=== PATIENT | male | born 1970 | race American Indian/Alaskan Native ===

== ENCOUNTER 2018-05-12 20:27 | Emergency (ER) | payer SELFPAY ==
[2018-05-12 20:50] VITALS: BP 119/75; PULSE 94; RESP 20; TEMP 99.2; O2SAT 96
--- NOTE | 2018-05-12 21:53 | C.PDOC ---
History Of Present Illness 47 year old male presents to the ED c/o cough, chest congestion , subjective fever for the past 2 days. Patient reports he is a heavy smoker, reports having some post tussive chest pain. Patient denies nausea, vomit, SOB, palpitations, nausea, vomit, dizziness, weakness. Time Seen by Provider: 05/12/18 21:00 Chief Complaint (Nursing): Cough, Cold, Congestion History Per: Patient History/Exam Limitations: no limitations Onset/Duration Of Symptoms: Days (2) Current Symptoms Are (Timing): Still Present Location Of Pain: Other Associated Symptoms: Fever, Cough Ear Symptoms: Bilateral: None Recent travel outside of the [place]: No Additional History Per: Patient Past Medical History Reviewed: Historical Data, Nursing Documentation, Vital Signs Vital Signs: Last Vital Signs Temp 99.2 F 05/12/18 20:47 Pulse 94 H 05/12/18 20:47 Resp 20 05/12/18 20:47 BP 119/75 05/12/18 20:47 Pulse Ox 96 05/12/18 20:47 - Medical History PMH: No Chronic Diseases Surgical History: No Surg Hx Family History: States: Unknown Family Hx - Social History Hx Alcohol Use: Yes Hx Substance Use: Yes - Immunization History Hx Tetanus Toxoid Vaccination: No Hx Influenza Vaccination: No Hx Pneumococcal Vaccination: No Review Of Systems Constitutional: Positive for: Fever. Negative for: Chills ENT: Positive for: Nose Discharge, Nose Congestion. Negative for: Throat Pain Cardiovascular: Positive for: Chest Pain. Negative for: Palpitations Respiratory: Positive for: Cough. Negative for: Shortness of Breath Gastrointestinal: Negative for: Nausea, Vomiting Skin: Negative for: Rash Neurological: Negative for: Weakness, Numbness, Headache Physical Exam - Physical Exam Appears: Non-toxic, No Acute Distress Skin: Normal Color, Warm, Dry Head: Atraumatic, Normacephalic Eye(s): bilateral: Normal Inspection Ear(s): Bilateral: Normal Oral Mucosa: Moist Throat: Normal, No Erythema, No Exudate Neck: Normal ROM, Supple Chest: Symmetrical Cardiovascular: Rhythm Regular Respiratory: Normal Breath Sounds (congestion), No Rales, No Rhonchi, No Wheezing Extremity: Normal ROM, No Tenderness, No Swelling Neurological/Psych: Oriented x3, Normal Speech, Normal Cognition Gait: Steady ED Course And Treatment O2 Sat by Pulse Oximetry: 96 (ON RA) Pulse Ox Interpretation: Normal - Radiology CXR: Interpreted by Me, Viewed By Me CXR Interpretation: Yes: Other (increased lung markings). No: Infiltrates Progress Note: Plan: - CXR. On reassessment, patient is resting comfortably with no wheezing, chest pain, or retractions. . Patient was advised to follow up with physician/clinic in 1-2 days and return to ED if symptoms worsen or persist. Reassessment Condition: Improved Disposition Counseled Patient/Family Regarding: Diagnosis, Need For Followup, Rx Given - Disposition Disposition: HOME/ ROUTINE Disposition Time: 21:51 Condition: STABLE Additional Instructions: Please follow up with PMD or clinic Increase fluids Return to ER if worse Prescriptions: Azithromycin [Zithromax] 250 mg PO DAILY #6 tab Benzonatate [Tessalon Perles] 100 mg PO TID #20 sgl Cetirizine HCl [Zyrtec] 10 mg PO DAILY #20 capsule Ibuprofen [Motrin] 600 mg PO Q6H #20 tab Instructions: Acute Bronchitis, Adult (DC), Upper Respiratory Infection (ED) Forms: [employer] (Kazakh) - Clinical Impression Clinical Impression: Bronchitis - PA / TILE TRIMMER / Resident Statement MD/DO has reviewed & agrees with the documentation as recorded. - Scribe Statement The provider has reviewed the documentation as recorded by the Scribe Darin Peter All medical record entries made by the Scribe were at my direction and personally dictated by me. I have reviewed the chart and agree that the record accurately reflects my personal performance of the history, physical exam, medical decision making, and the department course for this patient. I have also personally directed, reviewed, and agree with the discharge instructions and disposition.
--- NOTE | 2018-05-13 10:18 | RAD ---
HISTORY: COUGH, CHEST TIGHTNESS COMPARISON: No prior. TECHNIQUE: Chest PA and lateral FINDINGS: LUNGS: No focal consolidation. 13 mm nodular opacity projecting over the left lower lung consistent with nipple shadow. Nipple shadow appears superimposed on 3 mm probable calcified granuloma. Please note that chest x-ray has limited sensitivity for the detection of pulmonary masses. PLEURA: No significant pleural effusion identified. No definite pneumothorax . CARDIOVASCULAR: The cardiomediastinal silhouette appears within normal limits of size. No atherosclerotic calcification present. OSSEOUS STRUCTURES: Mild degenerative changes of the spine. VISUALIZED UPPER ABDOMEN: Unremarkable. OTHER FINDINGS: None. IMPRESSION: No focal consolidation identified. 13 mm nodular opacity projecting over the left lower lung consistent with nipple shadow. Nipple shadow appears superimposed on 3 mm probable calcified granuloma.
== END 2018-05-12 21:59 | disposition home or self-care (01) ==
LOC: C.ER 20:27
DX: J40 Bronchitis, not specified as acute or chronic (principal); F17.210 Nicotine dependence, cigarettes, uncomplicated